=== PATIENT | female | born 1975 | race Caucasian/White ===

== ENCOUNTER 2016-09-27 17:34 | Emergency (ER) | payer OTHER ==
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
== END 2016-09-27 18:50 | disposition home or self-care (01) ==
LOC: ER 17:34
DX: R20.0 Anesthesia of skin (principal); W86.1XXA Exposure to industrial wiring, appliances and electrical machinery, initial encounter